=== PATIENT | female | born 1995 | race Caucasian/White ===

== ENCOUNTER 2020-05-18 06:23 | Emergency (ER) | payer MEDICAID, SELFPAY ==
[~2020-05-18] VITALS: Ht 165.1 cm; Wt 75.2 kg
[2020-05-18] MEDS ORDERED: MEDR4PAK PO (07:29)
[2020-05-18] MEDS ORDERED: KETOROLAC 60MG 2ML VIAL IM ONE (07:30)
[2020-05-18] MEDS ORDERED: NAPR-837 PO (07:30)
[2020-05-18] MEDS ORDERED: LIDOCAINE 5% (LIDODERM) PATCH TD ONE (07:30)
[2020-05-18] MEDS ORDERED: METHOCARBAMOL 1,000 MG/10 ML VIAL (J2800) IM ONE (07:30)
[2020-05-18] MEDS ORDERED: ROBA750T4 PO (07:31)
[2020-05-18] MEDS ORDERED: LIDO5DIS41 TD (07:33)
[2020-05-18 08:03] VITALS: BP 113/62
[2020-05-18] MEDS ORDERED: **NOTE PATIENT COMMENT** MISC XX ONE (19:30)
== END 2020-05-18 08:08 | disposition home or self-care (01) ==
LOC: M ED 06:23
DX: M54.9 Dorsalgia, unspecified (principal); M79.606 Pain in leg, unspecified; X50.0XXA Overexertion from strenuous movement or load, initial encounter; Z79.899 Other long term (current) drug therapy
CPT/HCPCS: 99283; J1885; J2800